=== PATIENT | male | born 1955 | race Caucasian/White ===

== ENCOUNTER 2023-04-06 11:52 | Inpatient (IN) | payer BC, MEDICARE, OTHER ==
[~2023-04-06] VITALS: Ht 165.1 cm; Wt 72.6 kg
[2023-04-06] MEDS ORDERED: ASPirin 325 MG TAB PO ONE (12:00)
[2023-04-06 12:18] LABS: Basophils # (auto) 0 10 ^3/uL (0-0.2); Basophils % (auto) 0.4 % (0.0-2.0); Eosinophils # (auto) 0 10 ^3/uL (0-0.8); Eosinophils % (auto) 0.1 % (0.0-7.0); Hematocrit 45.1 % (41.0-53.0); Hemoglobin 14.9 g/dL (13.5-17.5); Lymphocytes # (auto) 1.9 10 ^3/uL (0.4-5.4); Lymphocytes % (auto) 20.9 % (10.0-50.0); Mean Corpuscular Hemoglobin 29.2 pg (28.0-32.0); Mean Corpuscular Hgb Conc. 33.1 g/dL (32.0-36.0); Mean Corpuscular Volume 88.2 fL (80.0-100.0); Monocytes # (auto) 0.4 10 ^3/uL (0-1.3); Monocytes % (auto) 4.7 % (0.0-12.0); Neutrophils # (auto) 6.9 10 ^3/uL (1.6-8.6); Neutrophils % (auto) 73.9 % (37.0-80.0); Nucleated Red Blood Cells % 0.1 %; Red Blood Cells 5.11 10^6/uL (4.5-5.90); Red Cell Distribution Width 13.6 % (11.8-14.3); White Blood Cell 9.3 10^3/uL (4.4-10.8)
[2023-04-06 12:49] LABS: Alanine Aminotransferase 22 U/L (7-40); Albumin 5.2 g/dL (3.2-4.8); Alkaline Phosphatase 56 U/L (46-116); Anion Gap 7.8 (5-15); Aspartate Aminotransferase 15 U/L (13-40); BUN/Creatinine Ratio 11.5 (10.0-20.0); Bilirubin, Total 1.1 mg/dL (0.2-1.0); Blood Urea Nitrogen 13 mg/dL (9-23); Calcium 11.4 mg/dL (8.5-10.1); Carbon Dioxide 29.2 mmol/L (20-30); Chloride 104 mmol/L (98-107); Glucose 188 mg/dL (74-106); Potassium 3.7 mmol/L (3.5-5.1); Sodium 141 mmol/L (136-145); Total Protein 7.8 g/dL (5.7-8.2)
[2023-04-06 14:49] LABS: Urine Bacteria FEW /hpf (None Seen); Urine Blood Negative /uL (Negative); Urine Clarity Clear (Clear); Urine Color Colorless (Yellow); Urine Protein, UAD Negative (Negative); Urine Specific Gravity 1.005 (1.001-1.035); Urine Urobilinogen Normal (Negative); Urine WBC 1 /hpf (0 - 3); Urine pH 5.5 (5.0-8.0)
[2023-04-06] MEDS ORDERED: ACETAMINOPHEN 325 MG TAB PO PRN (21:15)
[2023-04-06] MEDS ORDERED: DOCUSATE SOD 100 MG CAP PO PRN (21:15)
[2023-04-06] MEDS ORDERED: ONDANSETRON HCL 4 MG/2 ML VIAL IV PRN (21:15)
[2023-04-06] MEDS ORDERED: MORPHINE SULFATE INJ 2 MG/ml SYRG IV PRN (21:15)
[2023-04-06] MEDS ORDERED: DEXTROSE (50%) 50ML SYRG IV PRN (21:15)
[2023-04-06] MEDS ORDERED: NITROGLYCERIN 0.4 MG SL TAB SL PRN (21:15)
[2023-04-07] VITALS (7 sets, daily range): BP systolic 153–168; BP diastolic 76–92; PULSE 81–95; RESP 16–20; TEMP 98.1–98.2; O2SAT 94–97
[2023-04-07] MEDS: ATORVASTATIN 20 MG TAB PO SCH ×2 (00:03→23:00)
[2023-04-07] MEDS: InsuLIN REG 1unit/0.01ml Soln (100units/ml) SC SCH ×5 (00:04→23:25)
[2023-04-07] MEDS: ACCU-CHEK COMFORT CURVE STRIP VI SCH ×5 (00:08→23:00)
[2023-04-07] MEDS: hydrALAZINE HCL 20 MG/ML VL IV PRN ×4 (00:47→23:17)
[2023-04-07] MEDS: SODIUM CHLOR 0.9% PF (SALINE LOCK) 10ML VIAL/SYR IV SCH ×4 (01:00→22:00)
[2023-04-07 04:55] LABS: Basophils # (auto) 0.1 10 ^3/uL (0-0.2); Basophils % (auto) 0.6 % (0.0-2.0); Eosinophils # (auto) 0 10 ^3/uL (0-0.8); Eosinophils % (auto) 0.2 % (0.0-7.0); Hemoglobin 15.3 g/dL (13.5-17.5); Lymphocytes # (auto) 2.1 10 ^3/uL (0.4-5.4); Mean Corpuscular Hemoglobin 29.7 pg (28.0-32.0); Mean Corpuscular Hgb Conc. 33.2 g/dL (32.0-36.0); Mean Corpuscular Volume 89.3 fL (80.0-100.0); Monocytes # (auto) 0.8 10 ^3/uL (0-1.3); Monocytes % (auto) 7.3 % (0.0-12.0); Neutrophils # (auto) 8.1 10 ^3/uL (1.6-8.6); Neutrophils % (auto) 72.9 % (37.0-80.0); Red Blood Cells 5.15 10^6/uL (4.5-5.90); Red Cell Distribution Width 13.7 % (11.8-14.3); White Blood Cell 11.1 10^3/uL (4.4-10.8)
[2023-04-07 05:41] LABS: Alanine Aminotransferase 19 U/L (7-40); Alkaline Phosphatase 57 U/L (46-116); Anion Gap 7.8 (5-15); Aspartate Aminotransferase 24 U/L (13-40); BUN/Creatinine Ratio 12.6 (10.0-20.0); Bilirubin, Total 1.2 mg/dL (0.2-1.0); Blood Urea Nitrogen 12 mg/dL (9-23); Calcium 10.6 mg/dL (8.7-10.4); Carbon Dioxide 25.2 mmol/L (20-30); Chloride 105 mmol/L (98-107); Glucose 172 mg/dL (74-106); Sodium 138 mmol/L (136-145); Total Protein 7.7 g/dL (5.7-8.2)
[2023-04-07] MEDS: ASPirin 81 mg TAB PO SCH (11:04)
[2023-04-07] MEDS: amLODIPine BESYLATE 5 MG TAB PO SCH (11:05)
[2023-04-08 05:00] VITALS: BP 150/75; PULSE 82; RESP 18; TEMP 98.2; O2SAT 95
[2023-04-08] MEDS: SODIUM CHLOR 0.9% PF (SALINE LOCK) 10ML VIAL/SYR IV SCH ×3 (06:00→21:12)
[2023-04-08] MEDS: ACCU-CHEK COMFORT CURVE STRIP VI SCH ×4 (06:40→21:12)
[2023-04-08] MEDS: InsuLIN REG 1unit/0.01ml Soln (100units/ml) SC SCH ×4 (06:43→21:25)
[2023-04-08 08:00] VITALS: PULSE 89; PULSE 92; RESP 18; O2SAT 97
[2023-04-08 09:00] VITALS: BP 155/78; PULSE 92; RESP 18; TEMP 97.8; O2SAT 97
[2023-04-08] MEDS: ASPirin 81 mg TAB PO SCH (10:58)
[2023-04-08] MEDS: amLODIPine BESYLATE 5 MG TAB PO SCH (10:59)
[2023-04-08] MEDS ORDERED: LOSARTAN POTASSIUM 50 MG TAB PO ONE (11:00)
[2023-04-08 13:00] VITALS: BP 150/78; PULSE 81; RESP 17; TEMP 98.6; O2SAT 95
[2023-04-08] MEDS ORDERED: IOHEXOL 350 MG/ML 100ML IJ ONE (16:29)
[2023-04-08] MEDS ORDERED: CLOPIDOGREL BISULFATE 75 MG TAB PO ONE (16:45)
[2023-04-08] MEDS ORDERED: ENOXAPARIN SOD 80 MG/0.8ML SYRINGE SC ONE (16:45)
[2023-04-08 20:00] VITALS: PULSE 86; PULSE 87; RESP 18; O2SAT 95
[2023-04-08] MEDS: ATORVASTATIN 20 MG TAB PO SCH (21:10)
[2023-04-08 22:00] VITALS: BP 164/80; PULSE 86; RESP 18; TEMP 98; O2SAT 96
[2023-04-08] MEDS: hydrALAZINE HCL 20 MG/ML VL IV PRN (22:30)
[2023-04-09] VITALS (7 sets, daily range): BP systolic 115–151; BP diastolic 63–86; PULSE 77–91; RESP 14–89; TEMP 97.2–98.6; O2SAT 92–98
[2023-04-09] MEDS: HYDROcodone-ACET 5/325MG TAB PO PRN ×2 (01:00→16:27)
[2023-04-09] MEDS: ACCU-CHEK COMFORT CURVE STRIP VI SCH ×4 (06:17→21:51)
[2023-04-09] MEDS: InsuLIN REG 1unit/0.01ml Soln (100units/ml) SC SCH ×5 (06:18→22:00)
[2023-04-09] MEDS: SODIUM CHLOR 0.9% PF (SALINE LOCK) 10ML VIAL/SYR IV SCH ×3 (06:22→22:00)
[2023-04-09] MEDS: ASPirin 81 mg TAB PO SCH (10:30)
[2023-04-09] MEDS: CLOPIDOGREL BISULFATE 75 MG TAB PO SCH (10:31)
[2023-04-09] MEDS: LOSARTAN POTASSIUM 50 MG TAB PO SCH (10:31)
[2023-04-09] MEDS: amLODIPine BESYLATE 5 MG TAB PO SCH (10:31)
[2023-04-09] MEDS: ENOXAPARIN SOD 80 MG/0.8ML SYRINGE SC SCH (10:32)
[2023-04-09] MEDS: hydrALAZINE HCL 20 MG/ML VL IV PRN (16:27)
[2023-04-09] MEDS: ATORVASTATIN 20 MG TAB PO SCH (21:49)
[2023-04-10] VITALS (10 sets, daily range): BP systolic 127–146; BP diastolic 71–82; PULSE 61–94; RESP 14–18; TEMP 97.5–98.9; O2SAT 93–97
[2023-04-10] MEDS: ACCU-CHEK COMFORT CURVE STRIP VI SCH ×4 (05:52→21:58)
[2023-04-10] MEDS: SODIUM CHLOR 0.9% PF (SALINE LOCK) 10ML VIAL/SYR IV SCH ×3 (05:52→21:58)
[2023-04-10] MEDS: amLODIPine BESYLATE 5 MG TAB PO SCH (09:42)
[2023-04-10] MEDS: LOSARTAN POTASSIUM 50 MG TAB PO SCH (09:43)
[2023-04-10] MEDS: ENOXAPARIN SOD 80 MG/0.8ML SYRINGE SC SCH (09:43)
[2023-04-10] MEDS: ASPirin 81 mg TAB PO SCH (09:43)
[2023-04-10] MEDS: CLOPIDOGREL BISULFATE 75 MG TAB PO SCH (09:43)
[2023-04-10] MEDS: InsuLIN REG 1unit/0.01ml Soln (100units/ml) SC SCH ×3 (11:35→21:49)
[2023-04-10] MEDS: HYDROcodone-ACET 5/325MG TAB PO PRN (20:54)
[2023-04-10] MEDS: ATORVASTATIN 20 MG TAB PO SCH (21:53)
[2023-04-10 22:50] LABS: Triglycerides 141 mg/dL (< 150)
[2023-04-10 22:51] LABS: LDL Cholesterol 97 mg/dL (< 100)
[2023-04-10 22:52] LABS: Cholesterol 160 mg/dL (< 200); HDL Cholesterol 37 mg/dL (40-59)
[2023-04-11] MEDS: HYDROcodone-ACET 5/325MG TAB PO PRN (01:05)
[2023-04-11 04:35] VITALS: BP 146/72; PULSE 77; RESP 18; TEMP 98.3; O2SAT 95
[2023-04-11 05:03] VITALS: BP 130/73; PULSE 78; RESP 18; TEMP 98; O2SAT 93
[2023-04-11] MEDS: SODIUM CHLOR 0.9% PF (SALINE LOCK) 10ML VIAL/SYR IV SCH (06:29)
[2023-04-11] MEDS: ACCU-CHEK COMFORT CURVE STRIP VI SCH (06:29)
[2023-04-11] MEDS: InsuLIN REG 1unit/0.01ml Soln (100units/ml) SC SCH (06:40)
[2023-04-11 08:00] VITALS: PULSE 76; RESP 17; O2SAT 96
[2023-04-11] MEDS: ENOXAPARIN SOD 80 MG/0.8ML SYRINGE SC SCH (08:47)
[2023-04-11] MEDS: ASPirin 81 mg TAB PO SCH (08:47)
[2023-04-11] MEDS: CLOPIDOGREL BISULFATE 75 MG TAB PO SCH (08:47)
[2023-04-11] MEDS: LOSARTAN POTASSIUM 50 MG TAB PO SCH (08:47)
[2023-04-11] MEDS: amLODIPine BESYLATE 5 MG TAB PO SCH (08:48)
[2023-04-11] MEDS ORDERED: CLOP75TA28 PO (10:59)
[2023-04-11] MEDS ORDERED: AMLO1TAB23 PO (10:59)
[2023-04-11] MEDS ORDERED: LOSA50TA46 PO (10:59)
[2023-04-11] MEDS ORDERED: ATOR20TA PO (10:59)
[2023-04-11] MEDS ORDERED: ASPI-463 PO (10:59)
[2023-04-11 12:49] VITALS: BP 137/71; PULSE 75; RESP 18; TEMP 97.8; O2SAT 96
== END 2023-04-11 13:25 | disposition home or self-care (01) | DRG 65 ==
LOC: ER 11:52 → UNDOADMIN 21:13 → OVERFLOW 21:13 → TELE-EAST 04-07 09:14
PROVIDERS: ADMIT Nurse Practitioner Family; ATTEND Family Medicine
PROC: 5A09357 Assistance with Respiratory Ventilation, Less than 24 Consecutive Hours, Continuous Positive Airway Pressure (ICD-10-PCS; principal; 2023-04-10)
DX: I63.29 Cerebral infarction due to unspecified occlusion or stenosis of other precerebral arteries (principal); G81.91 Hemiplegia, unspecified affecting right dominant side; I10 Essential (primary) hypertension; E11.65 Type 2 diabetes mellitus with hyperglycemia; E78.00 Pure hypercholesterolemia, unspecified; R29.6 Repeated falls; Z60.2 Problems related to living alone; Z53.20 Procedure and treatment not carried out because of patient's decision for unspecified reasons; Z79.01 Long term (current) use of anticoagulants; Z79.02 Long term (current) use of antithrombotics/antiplatelets; Z79.82 Long term (current) use of aspirin; Z79.899 Other long term (current) drug therapy; Z82.49 Family history of ischemic heart disease and other diseases of the circulatory system
CPT/HCPCS: 36415; 70450; 70496; 70551; 80053; 80061; 81001; 82962; 83036; 84484; 85025; 93005; 93306; 94660; 97110; 97116; 97163; 97530; G0378; J1815